=== PATIENT | female | born 1940 | race Caucasian/White ===

== ENCOUNTER 2016-11-19 11:37 | Inpatient (IN) | payer MEDICARE ==
[~2016-11-19] VITALS: Ht 160 cm; Wt 76.4 kg
[~2016-11-19 11:37] MED LIST: ALDACTONE25 M1 PO; AMARYL1 MG PO; AMIODARONE200 MG PO; ANAPROX DS550 MG PO; ASPIR-LOW81 MG PO; ASPIRIN325 M2 PO; ASPIRIN81 MG PO; BACTRIM DS 8001 TA1 PO; BIAXIN500 MG PO; CARVEDILOL25 MG PO; CARVEDILOL3.125 MG PO; COMBIVENT1 ARO IH; HYDROCODONE BIT1 T11 PO; ISOSORBIDE DINI10 M1 PO; JANTOVEN2 MG PO; JANTOVEN3 MG PO; JANTOVEN4 MG PO; LANOXIN0.125 MG PO; LASIX20 MG PO; LEVEMIR100 U/ML SC; METFORMIN1000 MG PO; METFORMIN500 MG PO; PLAVIX75 MG PO; POTASSIUM20 MEQ PO; PRINIVIL10 MG PO; SIMVASTATIN40 MG PO; VICODIN 5/500 505 MG PO
[2016-11-19 11:42] VITALS: BP 108/50
[2016-11-19 12:13] LABS: HEMATOCRIT 39.2 % (37.0-47.0); HEMOGLOBIN 12.4 g/dl (12.0-16.0); MEAN CELL VOLUME 81.8 fl (81.0-99.0); MEAN CORPUSCULAR HGB 25.9 pg (27.0-31.0); MEAN CORPUSCULAR HGB CONC 31.6 g/dl (33.0-37.0); MEAN PLATELET VOLUME 9.5 fl (9.6-12.3); PLATELET COUNT AUTOMATED 378 10*3/uL (130-400); RED BLOOD COUNT 4.79 10*6/uL (4.10-5.10); RED CELL DISTRI WIDTH 17.2 % (0-14.5); WHITE BLOOD COUNT 24.1 10*3/uL (4.8-10.8)
[2016-11-19 12:23] LABS: PROTHROMBIN TIME 21.8 SECONDS (9.0-12.4)
[2016-11-19 12:29] LABS: ALBUMIN 2.7 gm/dl (3.1-4.5); BILIRUBIN, TOTAL 1.2 mg/dl (0.2-1.0); C-REACTIVE PROTEIN 7.65 MG/DL (0-0.3); CKMB 0.7 ng/ml (0.5-3.6); MAGNESIUM 1.8 mg/dL (1.5-2.1); POTASSIUM 3.8 mmol/L (3.5-5.1); TOTAL PROTEIN 6.7 gm/dL (6.4-8.2); TROPONIN I 0.027 ng/ml (<0.045)
[2016-11-19 12:40] LABS: MONOCYTE # 0.7 10*3/uL (0.1-1.0); NEUTROPHIL # 22.4 10*3/uL (2.3-7.9); NEUTROPHILS 93 % (47-73); PLATELET SUFFICIENCY NORMAL (NORMAL); TOTAL CELLS COUNTED 100 #CELLS
[2016-11-19 13:11] VITALS: BP 110/60
[2016-11-19 13:15] LABS: BILIRUBIN 2+ (NEGATIVE); BLOOD 3+ (NEGATIVE); CLARITY CLOUDY (CLEAR); COLOR RED (YELLOW); GLUCOSE NEGATIVE (NEGATIVE); KETONE 1+ (NEGATIVE); NITRITE POSITIVE (NEGATIVE); PROTEIN 3+ (NEGATIVE); SPECIFIC GRAVITY 1.015 (1.005-1.030)
[2016-11-19 13:16] LABS: LEUKO ESTERASE 3+ (NEGATIVE)
[2016-11-19 13:21] LABS: RBC TNTC rbc/hpf (0-2); URINE REFLEX COMMENT YES (NO); WBC TNTC wbc/hpf (0-5)
[2016-11-19 14:10] LABS: LA>2 REFLEX 2 HR DRAW NOW
[2016-11-19 14:30] VITALS: BP 98/56
[2016-11-19 14:38] VITALS: BP 98/56
[2016-11-19] MEDS ORDERED: COREG3.125 MG PO (14:56)
[2016-11-19] MEDS ORDERED: SIMVASTATIN20 MG PO (14:58)
[2016-11-19] MEDS ORDERED: COUMADIN3 M1 PO (15:03)
[2016-11-19 16:00] VITALS: BP 131/59
[2016-11-19 20:00] VITALS: BP 155/60
[2016-11-20] VITALS: BP 155/68
[2016-11-20 07:21] LABS: HEMATOCRIT 36.3 % (37.0-47.0); HEMOGLOBIN 11.4 g/dl (12.0-16.0); MEAN CELL VOLUME 82.9 fl (81.0-99.0); MEAN CORPUSCULAR HGB CONC 31.4 g/dl (33.0-37.0); MEAN PLATELET VOLUME 9.7 fl (9.6-12.3); PLATELET COUNT AUTOMATED 294 10*3/uL (130-400); RED BLOOD COUNT 4.38 10*6/uL (4.10-5.10); WHITE BLOOD COUNT 16.2 10*3/uL (4.8-10.8)
[2016-11-20 07:31] LABS: FREE T4 1.25 ng/dl (0.76-1.46); PHOSPHOROUS 3.5 mg/dL (2.5-4.9); POTASSIUM 4.5 mmol/L (3.5-5.1)
[2016-11-20 07:37] LABS: THYROID STIM HORMONE (HS) 2.04 uIU/ml (0.358-4.75)
[2016-11-20 07:38] LABS: HEMOGLOBIN A1c 7.2 % (4.8-5.6)
[2016-11-20 07:55] LABS: MONOCYTE # 0.3 10*3/uL (0.1-1.0); NEUTROPHIL # 15.9 10*3/uL (2.3-7.9); NEUTROPHILS 98 % (47-73); PLATELET SUFFICIENCY NORMAL (NORMAL); TOTAL CELLS COUNTED 100 #CELLS
[2016-11-20 07:58] LABS: PROTHROMBIN TIME 22.7 SECONDS (9.0-12.4)
[2016-11-20 08:00] VITALS: BP 166/48
[2016-11-20 12:00] VITALS: BP 157/68
[2016-11-20 16:00] VITALS: BP 120/56
[2016-11-20 20:00] VITALS: BP 155/60
[2016-11-21] VITALS: BP 157/55
[2016-11-21 06:22] LABS: HEMATOCRIT 35.5 % (37.0-47.0); HEMOGLOBIN 11.2 g/dl (12.0-16.0); MEAN CELL VOLUME 82.2 fl (81.0-99.0); MEAN CORPUSCULAR HGB 25.9 pg (27.0-31.0); MEAN CORPUSCULAR HGB CONC 31.5 g/dl (33.0-37.0); MEAN PLATELET VOLUME 9.5 fl (9.6-12.3); PLATELET COUNT AUTOMATED 302 10*3/uL (130-400); RED BLOOD COUNT 4.32 10*6/uL (4.10-5.10); RED CELL DISTRI WIDTH 16.9 % (0-14.5); WHITE BLOOD COUNT 14.4 10*3/uL (4.8-10.8)
[2016-11-21 06:49] LABS: ALBUMIN 2.5 gm/dl (3.1-4.5); BILIRUBIN, TOTAL 0.3 mg/dl (0.2-1.0); TOTAL PROTEIN 6.3 gm/dL (6.4-8.2)
[2016-11-21 06:52] LABS: INTERNATIONAL NORM RATIO 2.6 (2.0-3.5); PROTHROMBIN TIME 28.7 SECONDS (9.0-12.4)
[2016-11-21 07:04] LABS: NEUTROPHIL # 13.4 10*3/uL (2.3-7.9); NEUTROPHILS 93 % (47-73); PLATELET SUFFICIENCY NORMAL (NORMAL); TOTAL CELLS COUNTED 100 #CELLS
[2016-11-21 08:00] VITALS: BP 152/56
[2016-11-21] MEDS ORDERED: LEVAQUIN500 M2 PO (10:40)
[2016-11-21] MEDS ORDERED: BACTRIM 400-801 EACH PO (11:46)
== END 2016-11-21 11:32 | disposition home or self-care (01) | DRG 871 ==
LOC: ED 11:37 → 5E 13:39 → EDHOLD 13:39 → 5E 13:48
PROVIDERS: Emergency Medicine; Internal Medicine; Student in an Organized Health Care Education/Training Program
DX: A41.9 Sepsis, unspecified organism (principal); J18.9 Pneumonia, unspecified organism; N17.0 Acute kidney failure with tubular necrosis; E43 Unspecified severe protein-calorie malnutrition; N39.0 Urinary tract infection, site not specified; I48.0 Paroxysmal atrial fibrillation; E86.0 Dehydration; E11.9 Type 2 diabetes mellitus without complications; J44.0 Chronic obstructive pulmonary disease with (acute) lower respiratory infection; J44.1 Chronic obstructive pulmonary disease with (acute) exacerbation; R74.0 Nonspecific elevation of levels of transaminase and lactic acid dehydrogenase [LDH]; B96.1 Klebsiella pneumoniae [K. pneumoniae] as the cause of diseases classified elsewhere; R65.20 Severe sepsis without septic shock; I10 Essential (primary) hypertension; I25.10 Atherosclerotic heart disease of native coronary artery without angina pectoris; E78.5 Hyperlipidemia, unspecified; F17.210 Nicotine dependence, cigarettes, uncomplicated; Z68.28 Body mass index [BMI] 28.0-28.9, adult; Z95.810 Presence of automatic (implantable) cardiac defibrillator; Z95.5 Presence of coronary angioplasty implant and graft; Z98.51 Tubal ligation status; Z71.6 Tobacco abuse counseling; Z79.01 Long term (current) use of anticoagulants; Z79.82 Long term (current) use of aspirin; Z79.4 Long term (current) use of insulin; Z79.51 Long term (current) use of inhaled steroids; Z79.899 Other long term (current) drug therapy; Z90.49 Acquired absence of other specified parts of digestive tract; Z88.8 Allergy status to other drugs, medicaments and biological substances

== ENCOUNTER → 2017-03-12 | Outpatient (CLI) | payer MEDICARE ==
[~2017-03-12] MED LIST changes: +BACTRIM 400-801 EACH PO; +COREG3.125 MG PO; +COUMADIN3 M1 PO; +LEVAQUIN500 M2 PO; +SIMVASTATIN20 MG PO
== END | disposition home or self-care (01) ==
LOC: RESCLI 11:06
DX: I48.2 Chronic atrial fibrillation (principal); I13.0 Hypertensive heart and chronic kidney disease with heart failure and stage 1 through stage 4 chronic kidney disease, or unspecified chronic kidney disease; E11.22 Type 2 diabetes mellitus with diabetic chronic kidney disease; N18.9 Chronic kidney disease, unspecified; I50.9 Heart failure, unspecified; E78.5 Hyperlipidemia, unspecified; J44.1 Chronic obstructive pulmonary disease with (acute) exacerbation; F17.210 Nicotine dependence, cigarettes, uncomplicated

== ENCOUNTER → 2017-05-10 | Outpatient (CLI) | payer MEDICARE | LOC: US 12:57 | DX: N63.0 Unspecified lump in unspecified breast (principal) ==

== ENCOUNTER → 2017-05-23 | Outpatient (CLI) | payer MEDICARE | END | disposition home or self-care (01) | LOC: MAMMO 05-16 09:30 | DX: C50.811 Malignant neoplasm of overlapping sites of right female breast (principal); R92.8 Other abnormal and inconclusive findings on diagnostic imaging of breast; N63.10 Unspecified lump in the right breast, unspecified quadrant ==

== ENCOUNTER → 2017-06-18 | Outpatient (CLI) | payer MEDICARE ==
[2017-06-18 17:18] LABS: BASO # 0.1 10*3/uL (0.0-0.1); BASO % 0.8 % (0.0-1.0); EOS # 0.3 10*3/uL (0.0-0.4); EOS % 2.1 % (1.0-4.0); HEMATOCRIT 40.2 % (37.0-47.0); HEMOGLOBIN 12.2 g/dl (12.0-16.0); LYMPH # 1.8 10*3/uL (1.3-4.4); LYMPH % 14.4 % (27.0-41.0); MEAN CELL VOLUME 83.1 fl (81.0-99.0); MEAN CORPUSCULAR HGB 25.2 pg (27.0-31.0); MEAN CORPUSCULAR HGB CONC 30.3 g/dl (33.0-37.0); MEAN PLATELET VOLUME 9.5 fl (9.6-12.3); MONO # 0.7 10*3/uL (0.1-1.0); MONO % 5.5 % (3.0-9.0); NEUT # 9.6 10*3/uL (2.3-7.9); NEUT % 76.6 % (47.0-73.0); PLATELET COUNT AUTOMATED 401 10*3/uL (130-400); RED BLOOD COUNT 4.84 10*6/uL (4.10-5.10); RED CELL DISTRI WIDTH 16.7 % (0-14.5); WHITE BLOOD COUNT 12.5 10*3/uL (4.8-10.8)
[2017-06-18 17:47] LABS: ALBUMIN 2.9 gm/dl (3.1-4.5); CREATININE 1.22 mg/dL (0.55-1.02); POTASSIUM 4.4 mmol/L (3.5-5.1); TOTAL PROTEIN 6.9 gm/dL (6.4-8.2)
== END | disposition home or self-care (01) ==
LOC: LAB 15:49
PROVIDERS: Surgery
DX: C50.911 Malignant neoplasm of unspecified site of right female breast (principal); Z17.0 Estrogen receptor positive status [ER+]

== ENCOUNTER → 2017-07-12 | Outpatient (CLI) | payer MEDICARE | END | disposition home or self-care (01) | LOC: RAD 16:18 | DX: I51.7 Cardiomegaly (principal); N64.4 Mastodynia; Z95.0 Presence of cardiac pacemaker ==

== ENCOUNTER → 2017-07-26 | Outpatient (CLI) | payer MEDICARE ==
[2017-07-26 10:58] LABS: CREATININE 1.39 mg/dL (0.55-1.02); POTASSIUM 4.6 mmol/L (3.5-5.1)
== END | disposition home or self-care (01) ==
LOC: LAB 09:42
DX: C34.90 Malignant neoplasm of unspecified part of unspecified bronchus or lung (principal)

== ENCOUNTER → 2017-07-31 | Outpatient (CLI) | payer MEDICARE ==
[2017-07-31 12:50] LABS: CREATININE 1.2 mg/dL (0.55-1.02); POTASSIUM 4.7 mmol/L (3.5-5.1)
== END | disposition home or self-care (01) ==
LOC: LAB 11:45
PROVIDERS: Internal Medicine Cardiovascular Disease
DX: E87.5 Hyperkalemia (principal)

== ENCOUNTER → 2017-09-23 | Outpatient (CLI) | payer MEDICARE ==
[2017-09-23 11:47] LABS: BASO % 0.2 % (0.0-1.0); EOS # 0.2 10*3/uL (0.0-0.4); EOS % 1.7 % (1.0-4.0); HEMATOCRIT 32.8 % (37.0-47.0); LYMPH # 0.5 10*3/uL (1.3-4.4); LYMPH % 6.1 % (27.0-41.0); MEAN CELL VOLUME 83.7 fl (81.0-99.0); MEAN CORPUSCULAR HGB 25.5 pg (27.0-31.0); MEAN CORPUSCULAR HGB CONC 30.5 g/dl (33.0-37.0); MEAN PLATELET VOLUME 9.2 fl (9.6-12.3); MONO # 0.2 10*3/uL (0.1-1.0); MONO % 2.5 % (3.0-9.0); NEUT # 7.9 10*3/uL (2.3-7.9); NEUT % 88.9 % (47.0-73.0); PLATELET COUNT AUTOMATED 300 10*3/uL (130-400); RED BLOOD COUNT 3.92 10*6/uL (4.10-5.10); RED CELL DISTRI WIDTH 15.7 % (0-14.5); WHITE BLOOD COUNT 8.9 10*3/uL (4.8-10.8)
[2017-09-23 12:03] LABS: ALBUMIN 2.5 gm/dl (3.1-4.5); CREATININE 1.57 mg/dL (0.55-1.02); POTASSIUM 4.6 mmol/L (3.5-5.1); TOTAL PROTEIN 6.3 gm/dL (6.4-8.2)
== END ==
LOC: LAB 11:22
PROVIDERS: Nurse Practitioner Family
DX: C34.92 Malignant neoplasm of unspecified part of left bronchus or lung (principal)

== ENCOUNTER → 2017-09-30 | Outpatient (CLI) | payer MEDICARE ==
[2017-09-30 14:25] LABS: BASO % 0.7 % (0.0-1.0); EOS # 0.2 10*3/uL (0.0-0.4); HEMOGLOBIN 9.4 g/dl (12.0-16.0); LYMPH # 1.1 10*3/uL (1.3-4.4); LYMPH % 35.5 % (27.0-41.0); MEAN CELL VOLUME 82.2 fl (81.0-99.0); MEAN CORPUSCULAR HGB 25.8 pg (27.0-31.0); MEAN CORPUSCULAR HGB CONC 31.3 g/dl (33.0-37.0); MEAN PLATELET VOLUME 8.7 fl (9.6-12.3); MONO # 0.2 10*3/uL (0.1-1.0); MONO % 6.7 % (3.0-9.0); NEUT # 1.5 10*3/uL (2.3-7.9); NEUT % 50.8 % (47.0-73.0); PLATELET COUNT AUTOMATED 233 10*3/uL (130-400); RED BLOOD COUNT 3.65 10*6/uL (4.10-5.10); RED CELL DISTRI WIDTH 15.5 % (0-14.5)
[2017-09-30 14:43] LABS: ALBUMIN 2.4 gm/dl (3.1-4.5); CREATININE 1.24 mg/dL (0.55-1.02); POTASSIUM 3.5 mmol/L (3.5-5.1); TOTAL PROTEIN 5.8 gm/dL (6.4-8.2)
== END | disposition home or self-care (01) ==
LOC: LAB 14:00
PROVIDERS: Nurse Practitioner Family
DX: C34.92 Malignant neoplasm of unspecified part of left bronchus or lung (principal)

== ENCOUNTER → 2017-11-02 | Outpatient (CLI) | payer MEDICARE ==
[2017-11-02 14:35] LABS: BASO # 0.1 10*3/uL (0.0-0.1); BASO % 1.1 % (0.0-1.0); EOS # 0.3 10*3/uL (0.0-0.4); EOS % 3.8 % (1.0-4.0); HEMATOCRIT 34.6 % (37.0-47.0); HEMOGLOBIN 10.3 g/dl (12.0-16.0); LYMPH # 1.8 10*3/uL (1.3-4.4); LYMPH % 20.4 % (27.0-41.0); MEAN CELL VOLUME 88.9 fl (81.0-99.0); MEAN CORPUSCULAR HGB 26.5 pg (27.0-31.0); MEAN CORPUSCULAR HGB CONC 29.8 g/dl (33.0-37.0); MEAN PLATELET VOLUME 9.2 fl (9.6-12.3); MONO # 0.6 10*3/uL (0.1-1.0); MONO % 7.2 % (3.0-9.0); NEUT % 67.2 % (47.0-73.0); PLATELET COUNT AUTOMATED 344 10*3/uL (130-400); RED BLOOD COUNT 3.89 10*6/uL (4.10-5.10); RED CELL DISTRI WIDTH 19.8 % (0-14.5); WHITE BLOOD COUNT 8.9 10*3/uL (4.8-10.8)
[2017-11-02 15:05] LABS: ALBUMIN 3.1 gm/dl (3.1-4.5); CREATININE 1.29 mg/dL (0.55-1.02); POTASSIUM 4.7 mmol/L (3.5-5.1); TOTAL PROTEIN 6.8 gm/dL (6.4-8.2)
== END | disposition home or self-care (01) ==
LOC: LAB 13:54
PROVIDERS: Nurse Practitioner Family
DX: C34.92 Malignant neoplasm of unspecified part of left bronchus or lung (principal)

== ENCOUNTER 2017-12-25 17:47 | Inpatient (IN) | payer MEDICARE ==
[~2017-12-25] VITALS: Ht 160 cm; Wt 71.9 kg
--- NOTE | ~2017-12-25 | EKG ---
[place], [place] ELECTROCARDIOGRAM REPORT NAME: ILIA CUELLO V UNIT #: [id number] ROOM: 521 DOCTOR: MILE DRAFT REPORT BIRTHDATE: [birth year] [facility] Test Date: 2017-12-26 Test Time: 01:04:05 Pat Name: ILIA CUELLO Department: Room: 521 1 Gender: F Career Counselor: CHEMO : 1940 Requested By: LELE SMITH Order Number: [id number] Reading MD: Nayla De La O MD Measurements Intervals [employer] [place] Rate: 53 P: 51 MA: 152 QRS: 122 QRSD: 157 T: -35 QT: 439 QTc: 413 Interpretive Statements A-V dual-paced rhythm with some inhibition No further analysis attempted due to paced rhythm Electronically Signed On 12-28-2017 11:14:33 PDT by Nayla De La O MD CM:EKGRPT:ELECTROCARDIOGRAM REPORT [id number] LELE VERDE DRAFT REPORT LELE SMITH DO
--- NOTE | ~2017-12-25 | EKG ---
[place], [place] ELECTROCARDIOGRAM REPORT NAME: ILIA CUELLO V UNIT #: [id number] ROOM: 521 DOCTOR: MILE DRAFT REPORT BIRTHDATE: [birth year] [facility] Test Date: 2017-12-25 Test Time: 20:28:29 Pat Name: LIIA CUELLO Department: Room: 521 Gender: F Flight Attendant: DIONE : 1940 Requested By: DOLORES ACE Order Number: [id number] Reading MD: Nayla De La O MD Measurements Intervals [place] Rate: 58 P: 57 LA: 52 QRS: 128 QRSD: 149 T: -22 QT: 418 QTc: 411 Interpretive Statements A-V dual-paced rhythm with some inhibition No further analysis attempted due to paced rhythm Electronically Signed On 12-28-2017 11:13:06 PDT by Nayla De La O MD CM:EKGRPT:ELECTROCARDIOGRAM REPORT 27 [id number] DOLORES ACE EPIPHANY DRAFT REPORT DOLORES ACE
[~2017-12-25 17:47] MED LIST changes: +AMIODARONE HCL100 M1 PO; -AMIODARONE200 MG PO
[2017-12-25 17:50] VITALS: BP 133/63
[2017-12-25 18:20] LABS: BILIRUBIN NEGATIVE (NEGATIVE); BLOOD NEGATIVE (NEGATIVE); CLARITY CLEAR (CLEAR); COLOR YELLOW (YELLOW); GLUCOSE NEGATIVE (NEGATIVE); KETONE NEGATIVE (NEGATIVE); LEUKO ESTERASE TRACE (NEGATIVE); NITRITE NEGATIVE (NEGATIVE); SPECIFIC GRAVITY <= 1.005 (1.005-1.030); UROBILINOGEN 0.2 E.U./dl (0.2-1.0)
[2017-12-25 18:26] LABS: RBC 0-2 rbc/hpf (0-2); WBC 0-2 wbc/hpf (0-5)
[2017-12-25 18:27] LABS: BACTERIA TRACE; EPITHELIAL CELLS 0-2
[2017-12-25 19:06] LABS: BASO # 0.1 10*3/uL (0.0-0.1); BASO % 0.8 % (0.0-1.0); EOS # 0.2 10*3/uL (0.0-0.4); HEMATOCRIT 35.7 % (37.0-47.0); HEMOGLOBIN 11.1 g/dl (12.0-16.0); LYMPH # 1.1 10*3/uL (1.3-4.4); MEAN CELL VOLUME 89.5 fl (81.0-99.0); MEAN CORPUSCULAR HGB 27.8 pg (27.0-31.0); MEAN CORPUSCULAR HGB CONC 31.1 g/dl (33.0-37.0); MEAN PLATELET VOLUME 8.8 fl (9.6-12.3); MONO # 0.5 10*3/uL (0.1-1.0); NEUT # 8.5 10*3/uL (2.3-7.9); NEUT % 81.3 % (47.0-73.0); PLATELET COUNT AUTOMATED 263 10*3/uL (130-400); RED BLOOD COUNT 3.99 10*6/uL (4.10-5.10); WHITE BLOOD COUNT 10.5 10*3/uL (4.8-10.8)
[2017-12-25 19:22] LABS: ALBUMIN 2.4 gm/dl (3.1-4.5); ALKALINE PHOSPHATASE 86 U/L (45-117); BUN 36 mg/dl (7-24); CHLORIDE 99 mmol/L (98-107); CREATININE 0.84 mg/dL (0.55-1.02); POTASSIUM 4.3 mmol/L (3.5-5.1); SGOT/AST 126 IU/L (3-35); SGPT/ALT 111 U/L (12-78); SODIUM 134 mmol/L (136-145); TOTAL PROTEIN 5.4 gm/dL (6.4-8.2)
[2017-12-25 19:50] VITALS: BP 113/51
[2017-12-25 22:22] LABS: ACT PARTIAL THROMBO TIME 26.6 SECONDS (20.8-31.5); INTERNATIONAL NORM RATIO 1.6 (2.0-3.5)
[2017-12-25 22:47] VITALS: BP 120/40
[2017-12-25 23:28] VITALS: BP 104/47
[2017-12-26] MEDS ORDERED: NORTRIPTYLINE10 MG PO (00:24)
[2017-12-26] MEDS ORDERED: JANTOVEN1 MG PO (00:25)
[2017-12-26] MEDS ORDERED: ARIMIDEX1 MG PO (00:26)
[2017-12-26] MEDS ORDERED: LASIX20 MG PO (00:27)
[2017-12-26] MEDS ORDERED: NEURONTIN300 MG PO (00:28)
[2017-12-26] MEDS ORDERED: LOPERAMIDE HCL2 MG PO (00:29)
[2017-12-26] MEDS ORDERED: ZOFRAN4 MG PO (00:29)
[2017-12-26 06:44] LABS: BASO # 0.1 10*3/uL (0.0-0.1); BASO % 0.9 % (0.0-1.0); EOS # 0.2 10*3/uL (0.0-0.4); EOS % 2.5 % (1.0-4.0); HEMATOCRIT 35.5 % (37.0-47.0); HEMOGLOBIN 10.7 g/dl (12.0-16.0); LYMPH # 1.1 10*3/uL (1.3-4.4); LYMPH % 11.6 % (27.0-41.0); MEAN CELL VOLUME 91.5 fl (81.0-99.0); MEAN CORPUSCULAR HGB 27.6 pg (27.0-31.0); MEAN CORPUSCULAR HGB CONC 30.1 g/dl (33.0-37.0); MEAN PLATELET VOLUME 8.8 fl (9.6-12.3); MONO # 0.5 10*3/uL (0.1-1.0); MONO % 5.3 % (3.0-9.0); NEUT # 7.3 10*3/uL (2.3-7.9); NEUT % 78.5 % (47.0-73.0); PLATELET COUNT AUTOMATED 253 10*3/uL (130-400); RED BLOOD COUNT 3.88 10*6/uL (4.10-5.10); RED CELL DISTRI WIDTH 16.1 % (0-14.5); WHITE BLOOD COUNT 9.3 10*3/uL (4.8-10.8)
[2017-12-26 06:58] LABS: ALBUMIN 2.2 gm/dl (3.1-4.5); ALKALINE PHOSPHATASE 77 U/L (45-117); BUN 32 mg/dl (7-24); CHLORIDE 104 mmol/L (98-107); CHOLESTEROL 133 mg/dL (<200); CREATININE 0.92 mg/dL (0.55-1.02); FREE T4 1.04 ng/dl (0.76-1.46); HDL CHOLESTEROL 25 mg/dl (40-60); LDL CHOLESTEROL 47 mg/dL (9-159); PHOSPHOROUS 3.7 mg/dL (2.5-4.9); POTASSIUM 4.3 mmol/L (3.5-5.1); SGOT/AST 109 IU/L (3-35); SGPT/ALT 95 U/L (12-78); SODIUM 139 mmol/L (136-145); TRIGLYCERIDES 306 mg/dl (<150); VLDL CHOLESTEROL 61 mg/dL (6-40)
[2017-12-26 07:36] LABS: VITAMIN D, 25-HYDROXY 19.6 ng/mL (30-100)
[2017-12-26 07:43] LABS: ACT PARTIAL THROMBO TIME 30.8 SECONDS (19.5-32.1); INTERNATIONAL NORM RATIO 1.7 (2.0-3.5)
[2017-12-26 08:00] VITALS: BP 128/50
[2017-12-26 11:47] VITALS: BP 130/44
[2017-12-26 16:00] VITALS: BP 134/44
[2017-12-26 20:00] VITALS: BP 146/61
[2017-12-27] VITALS: BP 120/41
[2017-12-27 06:58] LABS: BASO # 0.1 10*3/uL (0.0-0.1); BASO % 0.9 % (0.0-1.0); EOS # 0.2 10*3/uL (0.0-0.4); EOS % 2.8 % (1.0-4.0); HEMATOCRIT 36.7 % (37.0-47.0); HEMOGLOBIN 10.9 g/dl (12.0-16.0); LYMPH # 1.1 10*3/uL (1.3-4.4); MEAN CELL VOLUME 92.2 fl (81.0-99.0); MEAN CORPUSCULAR HGB 27.4 pg (27.0-31.0); MEAN CORPUSCULAR HGB CONC 29.7 g/dl (33.0-37.0); MEAN PLATELET VOLUME 8.8 fl (9.6-12.3); MONO # 0.5 10*3/uL (0.1-1.0); MONO % 5.9 % (3.0-9.0); NEUT # 6.5 10*3/uL (2.3-7.9); NEUT % 76.6 % (47.0-73.0); PLATELET COUNT AUTOMATED 255 10*3/uL (130-400); RED BLOOD COUNT 3.98 10*6/uL (4.10-5.10); RED CELL DISTRI WIDTH 15.9 % (0-14.5); WHITE BLOOD COUNT 8.4 10*3/uL (4.8-10.8)
[2017-12-27 07:27] LABS: BUN 27 mg/dl (7-24); CHLORIDE 106 mmol/L (98-107); POTASSIUM 4.2 mmol/L (3.5-5.1); SODIUM 141 mmol/L (136-145)
[2017-12-27 07:29] LABS: CREATININE 0.92 mg/dL (0.55-1.02)
[2017-12-27 13:23] LABS: INTERNATIONAL NORM RATIO 1.5 (2.0-3.5)
[2017-12-27 16:00] VITALS: BP 134/48
[2017-12-27 20:00] VITALS: BP 149/48
[2017-12-28] VITALS: BP 130/39
[2017-12-28 07:33] LABS: INTERNATIONAL NORM RATIO 1.4 (2.0-3.5)
[2017-12-28 08:00] VITALS: BP 110/58
[2017-12-28 12:00] VITALS: BP 116/44
[2017-12-28 16:00] VITALS: BP 125/61
[2017-12-28] MEDS ORDERED: LOSARTAN POTASS25 M1 PO (16:25)
[2018-02-21] MEDS ORDERED: LIPITOR80 MG PO (17:36)
[2018-02-21] MEDS ORDERED: ZESTRIL10 MG PO (17:39)
[2018-02-21] MEDS ORDERED: ISOSORBIDE DINI10 M1 PO (17:46)
[2018-02-21] MEDS ORDERED: VITAMIN D31000 UNI1 PO (17:47)
[2018-02-21] MEDS ORDERED: ANASTROZOLE1 M1 PO (17:50)
[2018-02-21] MEDS ORDERED: NITROSTAT0.4 MG SL (19:47)
[2018-02-21] MEDS ORDERED: DOCUSATE SODIU100 M2 PO (19:49)
[2018-02-21] MEDS ORDERED: Coumadin2 MG PO (19:50)
[2018-02-22] MEDS ORDERED: CIPRO500 MG PO (14:03)
[2018-02-22] MEDS ORDERED: SYNTHROID25 MCG PO (14:05)
== END 2017-12-28 17:44 | disposition home or self-care (01) | DRG 280 ==
LOC: ED → 5E 22:17 → EDHOLD 22:17 → 5E 22:40
PROVIDERS: Family Medicine; Internal Medicine; Internal Medicine Cardiovascular Disease; Nurse Practitioner Family
DX: I21.4 Non-ST elevation (NSTEMI) myocardial infarction (principal); E43 Unspecified severe protein-calorie malnutrition; C34.90 Malignant neoplasm of unspecified part of unspecified bronchus or lung; I50.22 Chronic systolic (congestive) heart failure; E87.1 Hypo-osmolality and hyponatremia; I42.9 Cardiomyopathy, unspecified; D64.9 Anemia, unspecified; R79.1 Abnormal coagulation profile; R74.0 Nonspecific elevation of levels of transaminase and lactic acid dehydrogenase [LDH]; I25.10 Atherosclerotic heart disease of native coronary artery without angina pectoris; I11.0 Hypertensive heart disease with heart failure; E11.8 Type 2 diabetes mellitus with unspecified complications; E78.5 Hyperlipidemia, unspecified; I48.0 Paroxysmal atrial fibrillation; I34.0 Nonrheumatic mitral (valve) insufficiency; J44.9 Chronic obstructive pulmonary disease, unspecified; Z95.5 Presence of coronary angioplasty implant and graft; Z88.8 Allergy status to other drugs, medicaments and biological substances; Z79.899 Other long term (current) drug therapy; Z79.82 Long term (current) use of aspirin; Z79.01 Long term (current) use of anticoagulants; Z95.810 Presence of automatic (implantable) cardiac defibrillator; Z79.4 Long term (current) use of insulin; Z87.440 Personal history of urinary (tract) infections; Z87.01 Personal history of pneumonia (recurrent); Z98.51 Tubal ligation status; Z87.891 Personal history of nicotine dependence; Z82.49 Family history of ischemic heart disease and other diseases of the circulatory system; Z85.3 Personal history of malignant neoplasm of breast; Z92.21 Personal history of antineoplastic chemotherapy; Z68.28 Body mass index [BMI] 28.0-28.9, adult

== ENCOUNTER 2018-01-20 18:48 | Emergency (ER) | payer MEDICARE ==
[~2018-01-20] VITALS: Wt 54.4 kg
--- NOTE | ~2018-01-20 | EKG ---
[place], [place] ELECTROCARDIOGRAM REPORT NAME: ILIA CUELLO V UNIT #: [id number] ROOM: DOCTOR: EPIPHDAKOTA DRAFT REPORT BIRTHDATE: [birth year] [facility] Test Date: 2018-01-20 Test Time: 21:23:16 Pat Name: ILIA CUELLO Department: Room: Gender: F Tea Taster: Allan Ramírez : 1940 Requested By: STEPHANE LITTEL Order Number: [id number] Reading MD: Donald Moody MD Measurements Intervals [place] Rate: 74 P: 70 FL: 155 QRS: 138 QRSD: 164 T: -19 QT: 446 QTc: 495 Interpretive Statements Atrial-sensed ventricular-paced rhythm No further analysis attempted due to paced rhythm Compared to ECG 12/26/2017 01:04:05 Electronically Signed On 01-22-2018 14:47:49 PDT by Donald Moody MD CM:EKGRPT:ELECTROCARDIOGRAM REPORT 22 [id number] STEPHANE VERDE DRAFT REPORT STEPHANE LITTLE DO
--- NOTE | ~2018-01-20 | EKG ---
[place], [place] ELECTROCARDIOGRAM REPORT NAME: ILIA CUELLO V UNIT #: [id number] ROOM: DOCTOR: MILE DRAFT REPORT BIRTHDATE: [birth year] [facility] Test Date: 2018-01-20 Test Time: 18:52:48 Pat Name: ILIA CUELLO Department: Room: Gender: F Syrup Shed Supervisor: Allan Ramírez : 1940 Requested By: STEPHANE LITTLE Order Number: [id number] Reading MD: Donald Moody MD Measurements Intervals [place] Rate: 73 P: 61 NM: 155 QRS: 136 QRSD: 154 T: -11 QT: 451 QTc: 497 Interpretive Statements Atrial-sensed ventricular-paced rhythm No further analysis attempted due to paced rhythm Compared to ECG 12/26/2017 01:04:05 Electronically Signed On 01-22-2018 14:46:47 PDT by Donald Moody MD CM:EKGRPT:ELECTROCARDIOGRAM REPORT [id number] STEPHANE VERDE DRAFT REPORT STEPHANE LITTLE DO
[~2018-01-20 18:48] MED LIST changes: +ARIMIDEX1 MG PO; +JANTOVEN1 MG PO; +LOPERAMIDE HCL2 MG PO; +LOSARTAN POTASS25 M1 PO; +NEURONTIN300 MG PO; +NORTRIPTYLINE10 MG PO; +ZOFRAN4 MG PO
[2018-01-20 19:07] LABS: BASO # 0.1 10*3/uL (0.0-0.1); BASO % 0.6 % (0.0-1.0); EOS # 0.3 10*3/uL (0.0-0.4); EOS % 3.7 % (1.0-4.0); HEMATOCRIT 37.2 % (37.0-47.0); HEMOGLOBIN 11.4 g/dl (12.0-16.0); LYMPH # 0.9 10*3/uL (1.3-4.4); LYMPH % 11.1 % (27.0-41.0); MEAN CELL VOLUME 90.1 fl (81.0-99.0); MEAN CORPUSCULAR HGB 27.6 pg (27.0-31.0); MEAN CORPUSCULAR HGB CONC 30.6 g/dl (33.0-37.0); MEAN PLATELET VOLUME 8.6 fl (9.6-12.3); MONO # 0.5 10*3/uL (0.1-1.0); NEUT # 6.6 10*3/uL (2.3-7.9); NEUT % 78.1 % (47.0-73.0); PLATELET COUNT AUTOMATED 295 10*3/uL (130-400); RED BLOOD COUNT 4.13 10*6/uL (4.10-5.10); RED CELL DISTRI WIDTH 15.2 % (0-14.5); WHITE BLOOD COUNT 8.5 10*3/uL (4.8-10.8)
[2018-01-20 19:17] LABS: ACT PARTIAL THROMBO TIME 36.9 SECONDS (20.8-31.5); INTERNATIONAL NORM RATIO 4.2 (2.0-3.5)
[2018-01-20 19:25] LABS: ALBUMIN 2.2 gm/dl (3.1-4.5); ALKALINE PHOSPHATASE 86 U/L (45-117); BUN 26 mg/dl (7-24); CHLORIDE 98 mmol/L (98-107); CREATININE 0.93 mg/dL (0.55-1.02); SGOT/AST 142 IU/L (3-35); SGPT/ALT 125 U/L (12-78); SODIUM 139 mmol/L (136-145); TOTAL PROTEIN 5.6 gm/dL (6.4-8.2)
[2018-01-20] MEDS ORDERED: B-121000 MCG PO (19:28)
[2018-01-20 19:29] LABS: LIPASE 105 U/L (73-393)
[2018-01-20] MEDS ORDERED: CALCIUM + VITA1 EAC2 PO (19:29)
[2018-01-20] MEDS ORDERED: LEVEMIR FL100 UNIT/1 SQ (19:30)
[2018-01-21 01:44] VITALS: BP 122/57
[2018-02-21] MEDS ORDERED: LIPITOR80 MG PO (17:36)
[2018-02-21] MEDS ORDERED: ZESTRIL10 MG PO (17:39)
[2018-02-21] MEDS ORDERED: ISOSORBIDE DINI10 M1 PO (17:46)
[2018-02-21] MEDS ORDERED: VITAMIN D31000 UNI1 PO (17:47)
[2018-02-21] MEDS ORDERED: ANASTROZOLE1 M1 PO (17:50)
[2018-02-21] MEDS ORDERED: NITROSTAT0.4 MG SL (19:47)
[2018-02-21] MEDS ORDERED: DOCUSATE SODIU100 M2 PO (19:49)
[2018-02-21] MEDS ORDERED: Coumadin2 MG PO (19:50)
[2018-02-22] MEDS ORDERED: CIPRO500 MG PO (14:03)
[2018-02-22] MEDS ORDERED: SYNTHROID25 MCG PO (14:05)
== END 2018-01-21 02:04 | disposition short-term general hospital (02) ==
LOC: ED 18:48
PROVIDERS: Emergency Medicine; Physician Assistant
DX: R07.89 Other chest pain (principal); R10.12 Left upper quadrant pain; I25.2 Old myocardial infarction; Z88.8 Allergy status to other drugs, medicaments and biological substances; Z79.899 Other long term (current) drug therapy; Z79.02 Long term (current) use of antithrombotics/antiplatelets; Z79.82 Long term (current) use of aspirin; Z98.51 Tubal ligation status; Z87.891 Personal history of nicotine dependence

== ENCOUNTER → 2018-05-19 | Outpatient (CLI) | payer MEDICARE ==
[~2018-05-19] MED LIST changes: +ANASTROZOLE1 M1 PO; +B-121000 MCG PO; +CALCIUM + VITA1 EAC2 PO; +CIPRO500 MG PO; +Coumadin2 MG PO; +DOCUSATE SODIU100 M2 PO; +LEVEMIR FL100 UNIT/1 SQ; +LIPITOR80 MG PO; +NITROSTAT0.4 MG SL; +SYNTHROID25 MCG PO; +VITAMIN D31000 UNI1 PO; +ZESTRIL10 MG PO
[2018-05-19 12:35] LABS: BASO % 0.5 % (0.0-1.0); EOS # 0.2 10*3/uL (0.0-0.4); EOS % 2.9 % (1.0-4.0); HEMATOCRIT 34.7 % (37.0-47.0); HEMOGLOBIN 10.7 g/dl (12.0-16.0); LYMPH # 1.5 10*3/uL (1.3-4.4); MEAN CELL VOLUME 87.2 fl (81.0-99.0); MEAN CORPUSCULAR HGB 26.9 pg (27.0-31.0); MEAN CORPUSCULAR HGB CONC 30.8 g/dl (33.0-37.0); MEAN PLATELET VOLUME 8.6 fl (9.6-12.3); MONO # 0.4 10*3/uL (0.1-1.0); MONO % 5.8 % (3.0-9.0); NEUT # 5.5 10*3/uL (2.3-7.9); NEUT % 71.4 % (47.0-73.0); PLATELET COUNT AUTOMATED 260 10*3/uL (130-400); RED BLOOD COUNT 3.98 10*6/uL (4.10-5.10); RED CELL DISTRI WIDTH 15.9 % (0-14.5); WHITE BLOOD COUNT 7.6 10*3/uL (4.8-10.8)
[2018-05-19 12:55] LABS: ALBUMIN 2.6 gm/dl (3.1-4.5); ALKALINE PHOSPHATASE 123 U/L (45-117); BUN 24 mg/dl (7-24); CHLORIDE 106 mmol/L (98-107); CREATININE 0.98 mg/dL (0.55-1.02); POTASSIUM 4.7 mmol/L (3.5-5.1); SGOT/AST 67 IU/L (3-35); SGPT/ALT 47 U/L (12-78); SODIUM 140 mmol/L (136-145); TOTAL PROTEIN 6.3 gm/dL (6.4-8.2)
== END | disposition home or self-care (01) ==
LOC: LAB 12:14
PROVIDERS: Nurse Practitioner Family
DX: C34.92 Malignant neoplasm of unspecified part of left bronchus or lung (principal)

== ENCOUNTER → 2018-06-30 | Outpatient (CLI) | payer MEDICARE ==
[~2018-06-30] MED LIST changes: +ANTI-DIARRHEAL2 MG PO; +ATORVASTATIN CA40 M1 PO; +CALCIUM 600 +1 EA11 PO; +COLACE100 MG PO; -Coumadin2 MG PO; +Humalog SQ; +Ipratropium Brom3 ML NEB; +JANTOVEN2.5 MG PO; +KEYTRUDA100 MG/4 M IV; +LASIX40 MG PO; +LISINOPRIL2.5 MG PO; +MERREM IV1 GM IV; +NORCO 5-325 TA1 EACH PO; +NORTRIPTYLINE H25 M1 PO; +Ondansetron4 MG PO; +PREDNISONE10 MG PO; +RANITIDINE75 MG PO; +Synthroid,Levo75 MCG PO; +VITAMIN B121000 MC1 PO; +ZANTAC 150150 MG PO
[2018-06-30 14:18] LABS: BASO # 0.1 10*3/uL (0.0-0.1); EOS # 0.4 10*3/uL (0.0-0.4); EOS % 5.2 % (1.0-4.0); HEMATOCRIT 33.5 % (37.0-47.0); HEMOGLOBIN 10.1 g/dl (12.0-16.0); LYMPH # 1.1 10*3/uL (1.3-4.4); LYMPH % 13.1 % (27.0-41.0); MEAN CELL VOLUME 84.6 fl (81.0-99.0); MEAN CORPUSCULAR HGB 25.5 pg (27.0-31.0); MEAN CORPUSCULAR HGB CONC 30.1 g/dl (33.0-37.0); MEAN PLATELET VOLUME 8.6 fl (9.6-12.3); MONO # 0.5 10*3/uL (0.1-1.0); MONO % 6.3 % (3.0-9.0); NEUT # 6.2 10*3/uL (2.3-7.9); NEUT % 73.7 % (47.0-73.0); PLATELET COUNT AUTOMATED 315 10*3/uL (130-400); RED BLOOD COUNT 3.96 10*6/uL (4.10-5.10); WHITE BLOOD COUNT 8.4 10*3/uL (4.8-10.8)
[2018-06-30 14:47] LABS: ALBUMIN 2.4 gm/dl (3.1-4.5); CREATININE 1.18 mg/dL (0.55-1.02); POTASSIUM 4.1 mmol/L (3.5-5.1); TOTAL PROTEIN 6.1 gm/dL (6.4-8.2)
== END | disposition home or self-care (01) ==
LOC: LAB 13:46
PROVIDERS: Nurse Practitioner Family
DX: C34.92 Malignant neoplasm of unspecified part of left bronchus or lung (principal)

== ENCOUNTER → 2018-07-15 | Outpatient (CLI) | payer MEDICARE ==
[2018-07-15 12:37] LABS: BASO % 0.1 % (0.0-1.0); EOS # 0.1 10*3/uL (0.0-0.4); EOS % 0.4 % (1.0-4.0); HEMATOCRIT 35.3 % (37.0-47.0); HEMOGLOBIN 10.9 g/dl (12.0-16.0); LYMPH # 1.8 10*3/uL (1.3-4.4); LYMPH % 10.1 % (27.0-41.0); MEAN CELL VOLUME 83.6 fl (81.0-99.0); MEAN CORPUSCULAR HGB 25.8 pg (27.0-31.0); MEAN CORPUSCULAR HGB CONC 30.9 g/dl (33.0-37.0); MEAN PLATELET VOLUME 8.7 fl (9.6-12.3); MONO # 1.3 10*3/uL (0.1-1.0); MONO % 7.2 % (3.0-9.0); NEUT # 14.7 10*3/uL (2.3-7.9); NEUT % 81.5 % (47.0-73.0); PLATELET COUNT AUTOMATED 326 10*3/uL (130-400); RED BLOOD COUNT 4.22 10*6/uL (4.10-5.10); RED CELL DISTRI WIDTH 16.1 % (0-14.5)
[2018-07-15 13:02] LABS: ALBUMIN 2.4 gm/dl (3.1-4.5); CREATININE 1.14 mg/dL (0.55-1.02)
== END | disposition home or self-care (01) ==
LOC: LAB 12:14
PROVIDERS: Internal Medicine Medical Oncology
DX: C34.92 Malignant neoplasm of unspecified part of left bronchus or lung (principal)